=== PATIENT | male | born 2000 | race Caucasian/White ===

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

== ENCOUNTER 2018-10-14 12:08 | Emergency (ER) | payer OTHER ==
[~2018-10-14] VITALS: Ht 165.1 cm; Wt 79.9 kg
[~2018-10-14 12:08] MED LIST: AMOX500C2 PO; BENZ12LI2 MM
[2018-10-14 12:12] VITALS: BP 140/65; PULSE 69; RESP 18; Ht 165.1 cm; Wt 79.9 kg
[2018-10-14] MEDS ORDERED: LIDOCAINE/MYLANTA 40 ML BTL PO ONE (13:30)
[2018-10-14] MEDS ORDERED: BELLADONNA/PHENOBARBITAL 5ML CUP PO ONE (13:30)
[2018-10-14] MEDS ORDERED: BELLADONNA/PHENOBARBITAL TAB PO ONE (13:30)
[2018-10-14] MEDS ORDERED: FAMOTIDINE 20 MG TAB PO ONE (13:30)
[2018-10-14] MEDS ORDERED: MAG-19 PO (15:11)
[2018-10-14] MEDS ORDERED: FAMO-96 PO (15:11)
--- NOTE | 2018-10-14 20:19 | ERD ---
ER Documentation Chief Complaint Chief Complaint PT HAS AP 7 X 1 DAY DENIES V/N/D AFEBRILE HPI History of Present Illness: 18-year-old male with past medical history including asthma coming today with complaint of abdominal pain. Patient reports pain has been present since yesterday. Patient describes pain as sharp and burning to epigastric area. Patient with last bowel movement yesterday. Patient was unable to sleep last night due to pain. Patient also reports associated symptoms include mild constipation and bloating. Patient denies fever, chills, malaise, or systemic signs of infection. At home pharmacological/nonpharmacological treatment for symptoms: Denies Denies social concerns; Denies recent foreign travel ROS All systems reviewed and are negative except as per history of present illness. Medications Home Meds Active Scripts Magaldrate/Simethicone* (Mylanta*) 355 Ml Susp, 30 ML PO TID PRN for GASTROINTESTINAL UPSET, #1 BOTTLE Prov:KAELA CHAVEZ V LEVELING MACHINE OPERATOR 10/14/18 Famotidine* (Pepcid*) 20 Mg Tablet, 4 MG PO BID PRN for DISTENSION/GAS/BLOATING, #30 TAB Prov:KAELA CHAVEZ V LEVELING MACHINE OPERATOR 10/14/18 Amoxicillin* (Amoxicillin*) 500 Mg Cap, 500 MG PO TID for 7 Days, CAP Prov:GUILLERMINA RANDHAWA PA-C 09/16/16 Benzocaine* (Anbesol*) 12 Ml Liquid, 12 ML MM QID for 7 Days, EA Prov:GUILLERMINA RANDHAWA PA-C 09/16/16 Allergies Allergies: Coded Allergies: No Known Allergy (Unverified , 10/14/18) PMhx/Soc Medical and Surgical Hx: pt denies Medical Hx, pt denies Surgical Hx Hx Alcohol Use: No Hx Substance Use: No Hx Tobacco Use: No Smoking Status: Never smoker FmHx Family History: No diabetes, No coronary disease Physical Exam Vitals Vital Signs Date Temp Pulse Resp B/P (MAP) Pulse Ox O2 O2 Flow FiO2 Time Delivery Rate 10/14/18 98.6 69 18 140/65 100 12:12 (90) Physical Exam Const: No acute distress Head: Atraumatic Eyes: Normal Conjunctiva ENT: Normal External Ears, Nose and Mouth. Neck: Full range of motion. No meningismus. Resp: Clear to auscultation bilaterally Cardio: Regular rate and rhythm, no murmurs Abd: Soft, tenderness to palpation to epigastric, non distended. Normal bowel sounds no grimacing upon exam.. No rigidity, guarding, masses. Skin: No petechiae or rashes Back: No midline or flank tenderness Ext: No cyanosis, or edema Neur: Awake and alert Psych: Normal Mood and Affect Results 24 hrs Current Medications Medications Dose Sig/Yony Start Time Status Last (Trade) Ordered Route PRN Stop Time Admin Dose Reason Admin 40 ml ONCE ONCE 10/14/18 DC 10/14/18 Miscellaneous PO 13:30 13:16 Medication 10/14/18 13:31 (Gi Cocktail (2)) Belladonna 5 ml ONCE ONCE 10/14/18 DC Alkaloids/ PO 13:30 Phenobarbital 10/14/18 13:30 () Famotidine 20 mg ONCE ONCE 10/14/18 DC 10/14/18 (Pepcid) PO 13:30 13:16 10/14/18 13:31 Belladonna/ 1 tab ONCE ONCE 10/14/18 DC 10/14/18 Phenobarbital PO 13:30 13:43 () 10/14/18 13:31 Procedures/MDM ED course includes a thorough examination and history. Medications: GI cocktail, , Pepcid Imaging: Abdomen KUB Labs: -- Low suspicion for life-threatening medical emergency. Low suspicion for acute abdominal emergency or infectious emergency requires hospitalization or immediate surgical intervention. Patient afebrile hemodynamically stable. Otherwise healthy patient presenting with constellation of symptoms likely representing uncomplicated epigastric pain likely related to acid reflux as characterized by history, physical exam findings, radiologic findings.. Abdomen KUB revealing: IMPRESSION: Nonspecific abdomen. Sonu Torres, Physician No respiratory distress, otherwise relatively well appearing and nontoxic. At time of reassessment. Patient denies pain. Patient was asleep. Disposition given. Patient educated on diagnoses, prescriptions, follow-up care, return precautions. Strict return precautions given for worsening condition; questions answered discharge. Disposition for discharge with followup in 2 days with PCP/clinic. Departure Diagnosis: Primary Impression: Epigastric abdominal pain Additional Impression: Acid reflux Esophagitis presence: esophagitis presence not specified Qualified Codes: K21.9 - Gastro-esophageal reflux disease without esophagitis Condition: Stable Patient Instructions: Gerd (Adult), Epigastric Pain (Uncertain Cause) Referrals: COMMUNITY CLINICS YOU HAVE RECEIVED A MEDICAL SCREENING EXAM AND THE RESULTS INDICATE THAT YOU DO NOT HAVE A CONDITION THAT REQUIRES URGENT TREATMENT IN THE EMERGENCY DEPARTMENT. FURTHER EVALUATION AND TREATMENT OF YOUR CONDITION CAN WAIT UNTIL YOU ARE SEEN IN YOUR DOCTORS OFFICE WITHIN THE NEXT 1-2 DAYS. IT IS YOUR RESPONSIBILITY TO MAKE AN APPOINTMENT FOR FOLOW-UP CARE. IF YOU HAVE A PRIMARY DOCTOR --you should call your primary doctor and schedule an appointment IF YOU DO NOT HAVE A PRIMARY DOCTOR YOU CAN CALL OUR PHYSICIAN REFERRAL HOTLINE AT IF YOU CAN NOT AFFORD TO SEE A PHYSICIAN YOU CAN CHOSE FROM THE FOLLOWING [facility] [address] [facility]. [facility] [address] [facility]. [facility] [address] [facility] [address] [facility] [address] [facility]. [facility] [address] [facility] [facility] YOU HAVE RECEIVED A MEDICAL SCREENING EXAM AND THE RESULTS INDICATE THAT YOU DO NOT HAVE A CONDITION THAT REQUIRES URGENT TREATMENT IN THE EMERGENCY DEPARTMENT. FURTHER EVALUATION AND TREATMENT OF YOUR CONDITION CAN WAIT UNTIL YOU ARE SEEN IN YOUR DOCTORS OFFICE WITHIN THE NEXT 1-2 DAYS. IT IS YOUR RESPONSIBILITY TO MAKE AN APPOINTMENT FOR FOLOW-UP CARE. IF YOU HAVE A PRIMARY DOCTOR --you should call your primary doctor and schedule and appointment IF YOU DO NOT HAVE A PRIMARY DOCTOR YOU CAN CALL OUR PHYSICIAN REFERRAL HOTLINE AT . IF YOU CAN NOT AFFORD TO SEE A PHYSICIAN YOU CAN CHOSE FROM THE FOLLOWING [facility] INSTITUTIONS: [facility] [address] [place] [address] [facility] [address] [place] [address] [facility] [address] [place] [address] Additional Instructions: Thank you very much for allowing us to participate in your care. Your health and safety is our top priority at [facility]. It is important to read all discharge instructions and education provided in your discharge packet. Call your primary care doctor TOMORROW for an appointment during the next 2-4 days and bring all the information and medications prescribed. Have prescriptions filled and follow precisely the directions on the label. --Famotidine is a medication that will help with acid reflux; take this medication as prescribed for the next 1 to 2 weeks with lunch and dinner. Report to your primary care doctor if the abdominal pain is no longer present with this medication. If so, it is highly likely that your acid reflux is causing your symptoms. -Mylanta is a medication that will help with gastrointestinal upset, gas, bloating. If the symptoms get worse and your provider is unavailable, return to the Emergency Department immediately. If your pain worsens you develop vomiting or fever; return to emergency room for reevaluation. KAELA CHAVEZ NP Oct 14, 2018 20:18
== END 2018-10-14 15:26 | disposition home or self-care (01) ==
LOC: FTE 12:08
DX: K21.9 Gastro-esophageal reflux disease without esophagitis (principal)
CPT/HCPCS: 74019; Z7502; Z7610